=== PATIENT | female | born 2000 | race Caucasian/White ===

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

== ENCOUNTER 2018-05-31 14:41 | Emergency (ER) | payer MEDICAID, OTHER ==
[2018-05-31 14:52] VITALS: BP 114/56
--- NOTE | 2018-05-31 15:19 | EDPHY ---
H & P Stated Complaint: frequent urination, +blood in urine Time Seen by Provider: 05/31/18 15:02 HPI/ROS: Chief Complaint: Burning with urination, hematuria HPI: 18-year-old woman presenting with 2 weeks of increasing urgency frequency and burning with urination who began having blood in her urine yesterday. Mild low pelvic pressure. No abdominal pain. No back pain. No nausea or vomiting. No fevers or chills. She does have a history of urinary tract infections in the past. Denies any vaginal discharge. Last menstrual. Was a week ago was normal. Does not believe she is . ROS: 10 systems were reviewed and were negative except those elements noted in the HPI. PMH: Denies Social History: No smoking Family History: non-contributory Physical Exam: Gen: Awake, Alert, No Distress HEENT: Nose: no rhinorrhea Eyes: PERRLA, EOMI Mouth: Moist mucosa Neck: Supple, no JVD Chest: nontender, lungs clear to auscultation Heart: S1, S2 normal, no murmur Abd: Soft, non-tender, no guarding Back: no CVA tenderness, no midline tenderness Ext: no edema, non-tender Skin: no rash Neuro: CN II-XII intact, Sensation grossly intact, Strength 5/5 in bilateral upper and lower extremities - Personal History LMP (Females 10-55): 1-7 Days Ago Current Tetanus Diphtheria and Acellular Pertussis (TDAP): Yes - Medical/Surgical History Hx Asthma: No Hx Chronic Respiratory Disease: No Hx Diabetes: No Hx Cardiac Disease: No Hx Renal Disease: No Hx Cirrhosis: No Hx Alcoholism: No Hx HIV/AIDS: No Hx Splenectomy or Spleen Trauma: No Other PMH: Frequent UTIs - Social History Smoking Status: Never smoked Constitutional: Initial Vital Signs Temperature (C) 36.8 C 05/31/18 14:49 Heart Rate 91 05/31/18 14:49 Respiratory Rate 16 05/31/18 14:49 Blood Pressure 114/56 L 05/31/18 14:49 O2 Sat (%) 97 05/31/18 14:49 O2 Delivery Mode Room Air Allergies/Adverse Reactions: No Known Allergies Allergy (Verified 05/31/18 14:53) Home Medications: Medication Instructions Recorded Nitrofurantoin Monohyd/M-Cryst 100 mg PO BID #10 capsule 05/31/18 [Macrobid 100 mg Capsule] Phenazopyridine HCl [Pyridium] 200 mg PO TID #6 tab 05/31/18 Medical Decision Making ED Course/Re-evaluation: 18-year-old with symptoms consistent with uncomplicated urinary tract infection with no vaginal discharge. Urinalysis is not indicated. Will start her on Macrobid, follow up with [facility]. Departure - Departure Disposition: Home, Routine, Self-Care Clinical Impression: Urinary tract infection Condition: Good Instructions: Urinary Tract Infection in Women (ED) Additional Instructions: Please take her full course of antibiotics. Follow up with [facility] in 3-4 days if symptoms are not improving. [facility] [Cl[facility]] - As per Instructions Prescriptions: Nitrofurantoin Monohyd/M-Cryst [Macrobid 100 mg Capsule] 100 mg PO BID #10 capsule Phenazopyridine HCl [Pyridium] 200 mg PO TID #6 tab
== END 2018-05-31 15:45 | disposition home or self-care (01) ==
DX: N39.0 Urinary tract infection, site not specified (principal); Z87.440 Personal history of urinary (tract) infections

== ENCOUNTER 2018-10-14 22:49 | Emergency (ER) | payer MEDICAID ==
[2018-10-14 22:53] VITALS: BP 109/59
--- NOTE | 2018-10-14 23:27 | EDPHY ---
General - History Smoking Status: Never smoked Time Seen by Provider: 10/14/18 23:03 Narrative: CLINICAL IMPRESSION: Uncomplicated UTI ASSESSMENT/PLAN: 18-year-old female presents with 2 days of dysuria and urgency. She reports a frequent history of UTIs, last infection 6 months ago, and states this feels exactly the same. Urine suggestive of UTI. Patient did well with Macrobid and this will be prescribed again. Initial dose given in the ED. Patient denies . No abnormal discharge. Encouraged to follow up with PCP to recheck urine in 1 week. Warning signs return to ED sooner alignment discharge. DIFFERENTIAL DX: Differential diagnosis includes but not limited to urinary tract infection, pyelonephritis, urethritis, infection, ED PROCEDURES: See lab and/or imaging results below CHIEF COMPLAINT: Dysuria HPI: 18-year-old female presents with 2 days of dysuria and urinary urgency. No gross hematuria. No flank pain, nausea, vomiting, fever or chills. She endorses mild suprapubic abdominal pain. She reports a history of frequent UTIs , last infection 6 months ago. She completed a menstrual cycle a week ago and denies no abnormal discharge. PAST MEDICAL HISTORY: Frequent UTIs See triage summary and nurse notes for addition applicable history Pertinent Past Surgical History: None reported Family History: None contribute Social History: Otherwise healthy REVIEW OF SYSTEMS: A full 10 point review of systems was negative except for those mentioned in HPI. PHYSICAL EXAM: General Appearance: Alert, oriented, appropriate, cooperative, NAD, well hydrated, non-toxic appearing, VSS, no hypoxia. Gastrointestinal: Abdomen is soft, mild suprapubic tenderness, no flank pain, bowel sounds normal, no masses/hernia, no rigidity, guarding or focal peritoneal findings. Skin: Warm, dry, no rashes, no nodules on palpation. MEDICAL DECISION MAKING: Patient was seen independently. Secondary supervising physician at time of evaluation was: Dr. Ricci . Diagnosis: Uncomplicated UTI . New, requires workup Summary: See Assessment and Plan for summary of ED visit Clinical lab tests: ordered / reviewed. Patient Progress: Stable for discharge. (Jono Francisco) PHYSICIAN DOCUMENTATION: The patient was evaluated and managed by the Physician Bi Lead. My co- signature indicates that I have reviewed this chart and I agree with the findings and plan of care as documented. I am the secondary supervising physician. (Destiney Ricci) - Objective Vital Signs: Initial Vital Signs Temperature (C) 37.1 C 10/14/18 22:52 Heart Rate 75 10/14/18 22:52 Respiratory Rate 16 10/14/18 22:52 Blood Pressure 109/59 L 10/14/18 22:52 O2 Sat (%) 96 10/14/18 22:52 O2 Delivery Mode Room Air Allergies/Adverse Reactions: No Known Allergies Allergy (Verified 05/31/18 14:53) Home Medications: Medication Instructions Recorded Nitrofurantoin Macrobid [Macrobid] 100 mg PO BID 10 Days cap 10/14/18 Phenazopyridine HCl [Pyridium] 200 mg PO TID #6 tablet 10/14/18 Laboratory Results: 10/14/18 23:15 Urine Color [place]IOMA Urine Appearance CLEAR Urine pH 5.0 (5.0-7.5) Ur Specific [place] 1.026 (1.002-1.030) Urine Protein NEGATIVE (NEGATIVE) Urine Ketones NEGATIVE (NEGATIVE) Urine Blood NEGATIVE (NEGATIVE) Urine Nitrate NEGATIVE (NEGATIVE) Urine Bilirubin NEGATIVE (NEGATIVE) Urine Urobilinogen 2.0 EU H EU (0.2-1.0) Ur Leukocyte Esterase 1+ H (NEGATIVE) Urine RBC 1-3 /hpf /hpf (0-3) Urine WBC 25-50 /hpf H /hpf (0-3) Ur Epithelial Cells TRACE /lpf /lpf (NONE-1+) Urine Bacteria 1+ /hpf H /hpf (NONE SEEN) Urine Mucus TRACE /lpf /lpf (NONE-1+) Urine Glucose NEGATIVE (NEGATIVE) Medications Given: Discontinued Medications Nitrofurantoin Macrocrystals (Macrobid) 100 mg PO EDNOW ONE PRN Reason: Protocol Stop: 10/14/18 23:40 Last Admin: 10/14/18 23:45 Dose: 100 mg Departure - Departure Disposition: Home, Routine, Self-Care Clinical Impression: UTI (urinary tract infection) Condition: Good Instructions: Urinary Tract Infection in Women (ED) Additional Instructions: DISCHARGE INSTRUCTIONS FROM YOUR DOCTOR Thank you for visiting our emergency department today. You were treated by a physician metallurgical laboratory assistant today and your case was reviewed with our ED Attending physician. Please keep in mind that discharge from the emergency department does not mean that there is nothing wrong - it simply means that we have not identified an emergency condition that requires further evaluation or treatment in the hospital. You should always plan to follow up with primary care for re- evaluation of your condition in the next 2-3 days. If you have been referred to a specialist, please call as soon as possible (today or tomorrow) to schedule your follow up appointment at the appropriate time. YOU A DO APPEAR TO HAVE A URINARY TRACT INFECTION. ANTIBIOTICS INITIATED IN THE EMERGENCY DEPARTMENT AND A PRESCRIPTION GIVEN. PRESCRIPTION FOR PYRIDIUM ALSO PROVIDED. FOLLOW UP WITH A PRIMARY CARE PROVIDER IN THE NEXT 5-7 DAYS TO RECHECK URINE. RETURN TO THE EMERGENCY DEPARTMENT SOONER FOR WORSENING SYMPTOMS , FLANK PAIN, NAUSEA OR VOMITING, FEVERS GREATER THAN 100.4, DIFFICULTY URINATING, OR ANY OTHER CONCERNS. People present with illnesses and injuries in different ways, and it is always possible that we have missed something. You may always return for re-evaluation if symptoms worsen or if they are not improving or if you develop new/different symptoms. Again, thank you for choosing our emergency department. We hope that you feel better. Referrals: NONE *PRIMARY CARE P,. [Primary Care Provider] - As per Instructions Lynn Fitch MD [Medical Doctor] - 2-3 days without fail Prescriptions: Nitrofurantoin Macrobid [Macrobid] 100 mg PO BID 10 Days cap Phenazopyridine HCl [Pyridium] 200 mg PO TID #6 tablet
[2018-10-14] MEDS ORDERED: NITROFURANTOIN MACROBID 100 MG CAP PO ONE (23:39)
== END 2018-10-14 23:46 | disposition home or self-care (01) ==
DX: N39.0 Urinary tract infection, site not specified (principal)